=== PATIENT | male | born 1970 ===

== ENCOUNTER 2023-12-22 16:26 | Outpatient (CLI) | payer OTHER ==
--- NOTE | 2023-12-22 22:31 | CT Report ---
PROCEDURE: Sinus INDICATIONS: NASAL CONGESTION TECHNIQUE: Noncontrast 3.0 mm axial images acquired from the frontal sinuses to the mid-sella, with coronal and sagittal reformats. For radiation dose reduction, the following was used: automated exposure control , adjustment of mA and/or kV according to patient size. COMPARISON: None. FINDINGS: Image quality: Excellent. Maxillary Sinuses: Postsurgical sinus changes are present. There is mucosal thickening of the antrect omies bilaterally more prominent on the left. There is mild to moderate mucosal thickening within the left maxillary sinus extending to portions of the ethmoid air cells. No fluid levels. Minimal scatte red mucosal thickening is present within the remaining sinuses. Miscellaneous: Visualized intra-orbital contents are normal. No jairo bullosa. No nasal septal d eviation. IMPRESSION: Postsurgical sinus changes are present with mucosal thickening most prominent on the left as describe d above. Reviewed by: Gena Link MD on 12/22/2023 10:30 PM PDT Approved by: Gena Link MD on 12/22/2023 10:30 PM PDT Station ID: [id number]
== END 2023-12-22 16:27 | disposition home or self-care (01) ==
LOC: DI 16:26
PROVIDERS: ATTEND Family Medicine
DX: J32.9 Chronic sinusitis, unspecified (principal)

== ENCOUNTER 2024-03-15 10:10 | Outpatient (CLI) | payer OTHER ==
--- NOTE | 2024-03-15 11:21 | XRAY Report ---
PROCEDURE: Shoulder 2+V BL INDICATIONS: SHOULDER PAIN TECHNIQUE: 3 views of the shoulder were acquired. COMPARISON: None. FINDINGS: Bones: No fractures or dislocations. No suspicious bony lesions. Mild bilateral glenohumeral joint degenerative change, left . Visualized ribs appear intact. Soft tissues: No suspicious soft tissue calcifications. The visualized lungs are within normal limi ts. IMPRESSION: No acute bony abnormality. Mild degenerative change. Reviewed by: David Cota MD on 03/15/2024 11:20 AM PDT Approved by: David Cota MD on 03/15/2024 11:20 AM PDT Station ID: [id number]
--- NOTE | 2024-03-15 11:32 | XRAY Report ---
PROCEDURE: Lumbar Spine 2-3V INDICATIONS: LUMBAR PAIN TECHNIQUE: 2 views of the lumbar spine were acquired. COMPARISON: None. FINDINGS: Surgical change: None. Bones: 5 ibi-hob-baghnla vertebrae are present. There is grade I L4 on L5 retrolisthesis and grade I L5 on S1 anterolisthesis. No vertebral body compression fractures. Intervertebral disc space narrowin g and sclerosis is present at L3-4, L4-5, and L5-S1. Facet sclerosis is present at L4-5 and L5-S1. Soft tissues: Overlying bowel gas pattern is normal. No suspicious soft tissue calcifications. IMPRESSION: Spondylolisthesis and degenerative changes of the lower lumbar spine and the lumbosacral junction. Gi angle the extent of facet sclerosis, pars intraarticularis defects cannot be excluded at the lumbosacra l junction. Reviewed by: Vianney Blanco MD on 03/15/2024 11:31 AM PDT Approved by: Vianney Blanco MD on 03/15/2024 11:31 AM PDT Station ID: [id number]
== END 2024-03-15 10:11 | disposition home or self-care (01) ==
LOC: DI 10:10
PROVIDERS: ATTEND Internal Medicine Cardiovascular Disease
DX: M19.012 Primary osteoarthritis, left shoulder (principal); M19.011 Primary osteoarthritis, right shoulder; M43.16 Spondylolisthesis, lumbar region; M47.816 Spondylosis without myelopathy or radiculopathy, lumbar region; M43.17 Spondylolisthesis, lumbosacral region; M47.817 Spondylosis without myelopathy or radiculopathy, lumbosacral region